=== PATIENT | female | born 1975 | race Caucasian/White ===

== ENCOUNTER → 2017-12-19 | Outpatient (CLI) | payer MEDICAID ==
--- NOTE | 2017-12-23 11:18 | MAM ---
EXAM DESCRIPTION: 3D Screening BILATERAL : Digital Mammography. CLINICAL HISTORY: 42 years Female SCREENING . Bilateral breast augmentation 2013. Bilateral breasts are tender. Mother with ovarian cancer. Remote family history of ovarian cancer. No family history breast cancer. No HRT. COMPARISON: Baseline study at this facility. No prior reports available. TECHNIQUE: Bilateral CC and MLO projection full-field images, with Navid Implant Displacement 3-D tomosynthesis digital mammographic technique. Also bilateral synthesized CC/ MLO full-field images. Also with Navid Implant Displacement, CAD not utilized. Bilateral 2-D digital full-field images, MLO and CC projections, non-displaced, with CAD. FINDINGS: The breast parenchymal density pattern is: Heterogeneously dense breast tissue, which may obscure small masses. No skin thickening or nipple retraction bilateral solitary microcalcifications. Architectural distortion approximately 4 cm from the nipple in the upper-outer quadrant of the anterior third of the left breast not associated with microcalcifications. Denser than the surrounding fat fatty tissues. Well-defined oval shaped object with central calcification at the 900 clock position of the middle third of the left breast approximately 6 cm from the nipple most likely fatty necrosis. Focal asymmetry at the 1200 clock position of the retroareolar right breast. Not associated with calcifications. Similar density to the adjacent fibroglandular tissues. No nipple retraction. Bilateral retro-muscular saline implants. Capsules appear intact where seen. IMPRESSION: BI-RADS CATEGORY: 0 - INCOMPLETE- Need additional imaging evaluation. FOLLOW-UP: Recall for additional imaging: Bilateral diagnostic 3-D tomosynthesis full field LM imaging with additional Navid LM views. Bilateral targeted breast ultrasound of the regions of interest. Written communication concerning the IMPRESSION and Follow-up, will be mailed to the patient and referring health care provider. Electronically signed by: Waldo Jones MD 12/23/2017 11:16 AM CDT
== END ==
LOC: MAMMO 13:31
PROVIDERS: ATTEND Nurse Practitioner Family
DX: Z12.31 Encounter for screening mammogram for malignant neoplasm of breast (principal)

== ENCOUNTER → 2018-01-01 | Outpatient (CLI) | payer MEDICAID ==
--- NOTE | 2018-01-02 14:38 | US ---
EXAM DESCRIPTION: Breast,Right: Ultrasound CLINICAL HISTORY: 42 yearsFemaleABN MAMMO COMPARISON: Digital 3-D tomosynthesis with Navid views and and 2-D bilateral diagnostic mammography on this visit. 3-D tomosynthesis bilateral screening 12/19/2017. TECHNIQUE: Transcutaneous scanning of the retroareolar right breast utilizing two-dimensional and Doppler modes. Scanning performed by the station manager and Dr. Jones. FINDINGS: Scanning of the retroareolar right breast at the 1000 - 200 clock position. Heterogeneous fibroglandular and fatty echo texture. Implant capsule appears intact where seen. No discrete focal mass or cyst. No parenchymal edema or large calcifications. No skin abnormalities. Normal Doppler vascularity. IMPRESSION: 1. Bi-Rads Category 2: Benign. 2. Please refer to bilateral diagnostic mammographic evaluation and report on this visit. The FINDINGS and the FOLLOW-UP plan were reviewed in person with the patient after the examination. Written communication explaining the IMPRESSION and FOLLOW-UP will be mailed to the patient and referring care provider. Electronically signed by: Waldo Jones MD 01/02/2018 2:36 PM CDT
--- NOTE | 2018-01-02 14:38 | MAM ---
EXAM DESCRIPTION: 3D Diagnostic, Bilateral: Digital Mammography CLINICAL HISTORY: 42 yearsFemaleABN MAMMO focal asymmetry retroareolar right breast. Bilateral retromuscular saline implants.. COMPARISON: Bilateral 3-D Saumya synthesis screening mammography 12/19/2017.. Targeted breast ultrasound following this examination. Report from prior examination also reviewed. TECHNIQUE: Bilateral LM projection full-field images, with Navid implant displacement, 3-D tomosynthesis digital mammographic technique. Also bilateral synthesized Navid technique, LM full-field images. Bilateral 2-D LM implant images. CAD utilized for 2-D images. FINDINGS: The breast parenchymal density pattern is: Heterogeneously dense breast tissue, which may obscure small masses. No skin thickening or nipple retraction again noted is minimal focal asymmetry superior to the right nipple. No focal, stellate mass or density, , and no suspicious microcalcifications bilaterally. ULTRASOUND: Scanning of the retroareolar right breast at the 1000 - 200 clock position. Heterogeneous fibroglandular and fatty echo texture. Implant capsule appears intact where seen. No discrete focal mass or cyst. No parenchymal edema or large calcifications. No skin abnormalities. Normal Doppler vascularity. IMPRESSION: BI-RADS CATEGORY: 2 - BENIGN FINDINGS. FOLLOW UP: Routine digital bilateral screening, one year interval from December 2017. The FINDINGS and the FOLLOW-UP plan were reviewed in person with the patient after the examination. Written communication explaining the IMPRESSION and FOLLOW-UP will be mailed to the patient and referring care provider. According to the [employer], yearly mammograms are recommended starting at age 40 and continuing as long as a woman is in good health. Any breast change noted on a breast self-exam should be reported promptly to the patient's healthcare provider. Breast MRI is recommended for women with an approximately 20-25% or greater lifetime risk of breast cancer, including women with a strong family history of breast or ovarian cancer and women who have been treated for Hodgkin's disease. A negative mammographic report should not delay tissue diagnosis in patients with significant clinical history or physical findings. Extremely dense breast tissue limits the sensitivity of digital mammography. Electronically signed by: Waldo Jones MD 01/02/2018 2:37 PM CDT
== END ==
LOC: MAMMO 11:00
PROVIDERS: ATTEND Nurse Practitioner Family
DX: R92.8 Other abnormal and inconclusive findings on diagnostic imaging of breast (principal)
CPT/HCPCS: 76641; 77066; G0279

== ENCOUNTER → 2019-01-02 | Outpatient (CLI) | payer MEDICAID ==
--- NOTE | 2019-01-05 17:11 | MAM ---
EXAM DESCRIPTION: 3D Screening BILATERAL : Digital Mammography. CLINICAL HISTORY: 43 years Female ANNUAL SCREENING . No complaints or personal history of breast cancer. Mother with ovarian cancer. Remote family history of breast cancer. Childbirth. Premenopausal. No HRT. Bilateral breast augmentation. Lifetime risk of developing breast cancer (Tyrer-Cuzick model)(%): 7.1. COMPARISON: Bilateral screening digital breast tomosynthesis 12/19/2017. Bilateral diagnostic digital breast tomosynthesis and targeted right breast ultrasound 01/01/2018 . TECHNIQUE: Bilateral CC and MLO projection full-field images, with Navid Implant Displacement digital tomosynthesis mammographic technique. Bilateral 2-D digital full-field images, MLO and CC projections, non-displaced. CAD Bilateral digital 2-D full-field MLO images, implant displaced. CAD not available for tomosynthesis or 2-D images. FINDINGS: The breast parenchymal density pattern is: Heterogeneously dense breast tissue, which may obscure small masses. No skin thickening or nipple retraction. Again seen is a well-defined minimally dense oval-shaped structure with calcifications in the lower inner quadrant of the left breast consistent with a cortical cyst which is probably a sequela of implant displacement. Bilateral small solitary microcalcifications. Bilateral saline implants are retro-muscular and stable in position. No new focal, stellate mass or density, focal asymmetry , and no suspicious microcalcifications bilaterally. Stable mammograms compared to prior study. IMPRESSION: Benign exam. BIRAD CATEGORY: 2 BENIGN FINDINGS. RECOMMENDATIONS: FOLLOW UP: Routine digital bilateral mammographic screening, one year interval from December 2018. Written communication explaining the IMPRESSION and follow-up, will be mailed to the patient and referring health care provider. The FINDINGS and the FOLLOW-UP plan were reviewed in person with the patient after the examination. According to the [employer], yearly mammograms are recommended starting at age 40 and continuing as long as a woman is in good health. Any breast change noted on a breast self-exam should be reported promptly to the patient's healthcare provider. Breast MRI is recommended for women with an approximately 20-25% or greater lifetime risk of breast cancer, including women with a strong family history of breast or ovarian cancer and women who have been treated for Hodgkin's disease. A negative mammographic report should not delay tissue diagnosis in patients with significant clinical history or physical findings. Extremely dense breast tissue limits the sensitivity of digital mammography. Electronically signed by: Waldo Jones MD 01/05/2019 5:08 PM CDT
== END ==
LOC: MAMMO 10:00
PROVIDERS: ATTEND Nurse Practitioner Family
DX: Z12.31 Encounter for screening mammogram for malignant neoplasm of breast (principal)

== ENCOUNTER → 2020-03-10 | Outpatient (CLI) | payer MEDICAID ==
--- NOTE | 2020-03-10 16:14 | US ---
EXAM DESCRIPTION: Abdomen,Complete: Ultrasound. CLINICAL HISTORY: 45 years FemaleUNSPECIFIED ABDOMINAL PAIN COMPARISON: None Available. TECHNIQUE: Transabdominal scanning: grayscale and Doppler modes. FINDINGS: Gallbladder: Normal size and echogenicity with no intraluminal stones or sludge. Normal wall thickness 2.7 mm with no fluid. Nontender with transducer pressure. Common bile duct: 5.4 mm normal caliber. Liver: Normal echogenicity with no focal lesions. 13.7 cm long axis right lobe. Hepatopedal flow in the portal vein measuring 9 mm caliber at the shane hepatis. Normal caliber of the ducts. Smooth capsule with no ascites. Pancreas: Minimally echogenic but normal size. Pancreatic duct not seen.. Abdominal aorta: Normal caliber from the proximal segment to the distal bifurcation. IVC: visualized; normal caliber. Spleen normal echogenicity; long axis measurement is 11.3 cm. Right kidney: 10.8 cm long axis with normal cortical thickness and echogenicity. Volume 158.7 mL. No echogenic stones or hydronephrosis. Left kidney: 12.4 cm long axis with normal cortical thickness and echogenicity. The height 161.4 mL. No echogenic stones or hydronephrosis. IMPRESSION: Normal ultrasound the abdomen. No organomegaly. No gallstones. No inflammatory changes in the abdominal organs. No ascites. The stomach was not imaged on this study. Electronically signed by: Waldo Jones MD 03/10/2020 4:13 PM CDT
== END ==
LOC: US 10:30
PROVIDERS: ATTEND Emergency Medicine
DX: R10.9 Unspecified abdominal pain (principal)

== ENCOUNTER → 2020-10-26 | Outpatient (CLI) | payer MEDICAID ==
--- NOTE | 2020-10-27 16:12 | MAM ---
EXAM DESCRIPTION: 3D Screening BILATERAL : Digital Mammography. CLINICAL HISTORY: 45 years Female SCREENING . No complaints. Mother with ovarian cancer age 24. Remote family history of breast and ovarian cancer. Menarche age 13. Childbirth age 17. HRT use unknown duration but not presently. Bilateral breast augmentation. Lifetime risk of developing breast cancer (Tyrer-Cuzick model)(%): 6.3. COMPARISON: Bilateral screening digital breast tomosynthesis with Navid implant displacement technique december 2018 and December 2017. Diagnostic breast tomosynthesis and directed right breast ultrasound December 2017 TECHNIQUE: Bilateral CC and MLO projection full-field images, with Navid Implant Displacement digital tomosynthesis mammographic technique. Bilateral 2-D digital full-field images, MLO and CC projections, non-displaced. Bilateral digital 2-D full-field MLO images. :images with displacement. CAD available for 2-D images. FINDINGS: The breast parenchymal density pattern is: Scattered areas of fibroglandular density. Bilateral saline retro-muscular implant placement. Bilateral folds seen in the implants. Stable since the prior study. Stable calcified density, probably fat necrosis, medial lower quadrant left breast. No skin thickening or nipple retraction No new focal, stellate mass or density, focal asymmetry , and no suspicious microcalcifications bilaterally. Stable mammograms compared to prior study. IMPRESSION: Benign exam. BIRAD CATEGORY: 2 BENIGN FINDINGS. RECOMMENDATIONS: FOLLOW UP: Routine digital bilateral mammographic screening, one year interval from October 2020. Written communication explaining the IMPRESSION and follow-up, will be mailed to the patient and referring health care provider. According to the [employer], yearly mammograms are recommended starting at age 40 and continuing as long as a woman is in good health. Any breast change noted on a breast self-exam should be reported promptly to the patient's healthcare provider. Breast MRI is recommended for women with an approximately 20-25% or greater lifetime risk of breast cancer, including women with a strong family history of breast or ovarian cancer and women who have been treated for Hodgkin's disease. A negative mammographic report should not delay tissue diagnosis in patients with significant clinical history or physical findings. Extremely dense breast tissue limits the sensitivity of digital mammography. Electronically signed by: Waldo Jones MD 10/27/2020 4:10 PM [employer]
== END ==
LOC: MAMMO 09:50
PROVIDERS: ATTEND Obstetrics & Gynecology
DX: Z12.31 Encounter for screening mammogram for malignant neoplasm of breast (principal)